=== PATIENT | male | born 1950 | race Caucasian/White ===

== ENCOUNTER 2016-10-21 22:31 | Inpatient (IN) | payer MEDICARE ==
[~2016-10-21] VITALS: Ht 185.4 cm; Wt 132.6 kg
--- NOTE | ~2016-10-21 | ER ---
PATIENT'S NAME: DINORAH BLANCO [facility] AGE: 65 Y [address] ROOM: [place] [address] [place] [facility] [place]: 10/21/[place] ER/Outpatient Report DISCHARGE DATE: FAMILY PHYSICIAN: PHYSICIAN, UNKNOWN ATTENDING PHYSICIAN: ANN WASSERMAN V TIME OF ARRIVAL: 2231 hours. TIME SEEN: 2231 hours. IDENTIFICATION: A 65-year-old male. CHIEF COMPLAINT: Fall with lumbar spine fracture. HISTORY OF PRESENT ILLNESS: The patient is a 65-year-old male who was transferred here from [facility]. The patient states that approximately 5 days ago he was outside weed eating when he sustained a fall and developed some back pain. He states he was evaluated in [facility] a couple of days ago and everything "checked out okay." Last night, he tripped and fell and again developed some worsening of his back pain. This happened at approximately 8 p.m. and around 2 a.m., his called the ambulance, but the patient refused transport at that time. Then, later this afternoon, he was seen at [facility], where they identified an L2 vertebral body fracture, nondisplaced, and a transverse process fracture on the right; so, he was referred here for care with a spine surgeon. The patient states he did not hit his head. No loss of consciousness. He denies pain anywhere else. ALLERGIES: PENICILLIN. CURRENT MEDICATIONS: 1. Hydralazine 25 mg t.i.d. 2. Simvastatin 80 mg daily. 3. Hyzaar 12.5/50 daily. 4. Hydroxychloroquine 200 mg daily. 5. Lidoderm patch daily. 6. Metformin 850 mg b.i.d. 7. Metoprolol succinate ER 50 mg daily. 8. Pioglitazone 15 mg daily. 9. Temazepam 15 mg daily. PATIENT'S NAME: DINORAH BLANCO [facility] AGE: 65 Y [address] ROOM: [place] [address] [place] [facility] [place]: 10/21/2016 ER/Outpatient Report DISCHARGE DATE: FAMILY PHYSICIAN: PHYSICIAN, UNKNOWN ATTENDING PHYSICIAN: ANN WASSERMAN V 10. Tramadol 50-100 mg q.6 h. p.r.n. 11. Effexor XR 225 mg daily. 12. Valium 10 mg t.i.d. p.r.n. 13. Amlodipine 10 mg daily. 14. Glyburide 5 mg daily. MEDICAL PROBLEMS: Depression, hypothyroidism, hypertension, hyperlipidemia, and diabetes mellitus, type 2. PRIOR SURGERY: Lumbar spine surgery x2 in [place], carpal tunnel syndrome, and rotator cuff. SOCIAL HISTORY: The patient is and lives in [place], [place]. 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 Tobacco use, denies. Alcohol use, drinks 3 times a week. Drug use, denies. FAMILY HISTORY: No pertinent family history identified. REVIEW OF SYSTEMS: All systems reviewed and negative other than what is noted in the HPI. PHYSICAL EXAMINATION: VITAL SIGNS: Weight 132.6 kg. Blood pressure 209/99, pulse 76, respirations 18, temp 98.7, and sats 94%. GENERAL: A 65-year-old male in mild distress. HEENT: Head: Normocephalic, atraumatic. Ears: TMs translucent both ears. Nose: Mucosa pink, no lesions. Mouth: No lesions. Pharynx, benign. NECK: Supple. No lymphadenopathy. No tenderness to palpation of his cervical spine. LUNGS: Clear to auscultation. HEART: Regular rate and rhythm. ABDOMEN: Protuberant, bowel sounds present, soft, slightly distended, nontender, no CVA tenderness. No tenderness of his thoracic spine. He does have pain in his lumbar spine area and more to the right. SKIN: [place], warm, and dry. No lesions or rashes noted. NEURO: The patient is alert, oriented x4. Cranial nerves 2 through 12 are grossly intact. Motor strength 5/5 throughout. Sensation is intact to light touch. Trace of lower extremity edema. EMERGENCY DEPARTMENT COURSE: All records were reviewed from [facility]. A rainbow and a clot were drawn from lab here. Labs drawn there include at 11 a.m., troponin I less than 0.03. Hemoglobin 13.1, hematocrit 38.8, platelets 162, white count PATIENT'S NAME: DINORAH BLANCO [facility] AGE: 65 Y [address] ROOM: [place] [address] [place] [facility] [place]: 10/21/2016 ER/Outpatient Report DISCHARGE DATE: FAMILY PHYSICIAN: PHYSICIAN, UNKNOWN ATTENDING PHYSICIAN: ANN WASSERMAN V 6.8. CRP 2.3. UA: Specific gravity 1.020, pH 7.5, otherwise negative. Sodium 138, potassium 3.3, chloride 99, CO2 29, BUN 15, creatinine 0.9, and blood sugar 89. Liver enzymes normal. CT scan, lumbar spine, nondisplaced fracture involving the anterior middle 3rd of L2 vertebral body. Fracture does not extend into the posterior 3rd of the vertebra or the pedicles. Nondisplaced fracture through the right transverse process of L2. Chronic degenerative lumbar spondylosis. It was noted later on addendum there was trace amounts of fluid and gas identified are likely related to the patient's fracture and degenerative disk disease and correlation with sed rate, white blood cell count would recommend to exclude early secondary infection. CT scan, thoracic spine, diffuse cervical and thoracic spondylosis, no acute findings. CT scan head, no acute findings. Chest x-ray, no acute process. Pelvis, mild degenerative changes. IMPRESSION: 1. Nondisplaced fracture of the L2 vertebral body. 2. Nondisplaced fracture through the right transverse process of L2. 3. Mild hypokalemia. 4. Frequent falls. 5. Hypertension. 6. Diabetes mellitus. PLAN: For admission, per Dr. Wasserman hospitalist and with Dr. Rice, consulting. Dr. Wasserman evaluated the patient in the emergency room and I did speak by telephone with Dr. Rice. FRANCINE GRAY MD CAR/modl /[id number] d: 10/22/16 0459 t: 10/22/16 0549, OUTPATIENT REPORT
--- NOTE | ~2016-10-21 | DS ---
PATIENT'S NAME: DINORAH BLANCO [facility] AGE: 65 Y [address] ROOM: [address] [address] LOCATION: [facility] ADMIT DATE: 10/21/2016 Discharge Summary DISCHARGE DATE: 10/24/2016 FAMILY PHYSICIAN: Vane Bey PA-C ATTENDING PHYSICIAN: Fabio Kendall V FINAL DIAGNOSES: 1. L2 vertebral body fracture. 2. Acute encephalopathy. 3. Elevated hypertension. 4. Diabetes mellitus, type 2, uncontrolled. 5. Obstructive sleep apnea. CONSULTANTS ON THE CASE: Dr. Rice. HOSPITAL COURSE: Please see details of admission in H and P by Dr. Kendall. Briefly, the patient was transferred from [facility] after being diagnosed with a vertebral fracture. The patient was started on narcotics with Percocet with consultation per Dr. Rice. Dr. Rice saw the patient the next day. He ordered a TLSO and stated that the patient remain in that for the next 2 months. He would follow up with the patient in [place] in 4 to 6 weeks. Later that day, the patient was found to have increased somnolence and encephalopathy. Difficult to arouse. We did hold his narcotics and antispasmodics. The patient received an ABG, which was really pretty unremarkable. We did start BiPAP on the patient and did give low-dose Narcan secondary to his encephalopathy. The patient was more alert later in the day. We did switch him over to CPAP. We changed his medications to prevent any further acute respiratory distress. The patient, the next day, was able to transfer from bed to chair with minimal assist. He was able to participate significantly with therapies, showing good strength and motorization. His blood pressure remained a complication during his stay. We did have some elevated pressures. We changed his hydralazine to 50 mg 3 times daily with holding parameters in place. The patient tolerated this well. We did remove the Guzmán catheter and arranged for home health on discharge. On the , it was felt that the patient could safely be discharged home with the assistance of home health. DIAGNOSTICS: Blood sugars ranged from 119 to 240. ABG showed a pH of 7.48, pCO2 of 34, PO2 of 93, HC03 of 25.3, CO2 content 26, base excess 2.0, percent saturation was 98% on room air. On the 4th, sodium was 141, potassium 3.4, chloride 106, bicarbonate 27, glucose 148, BUN 10, and creatinine 0.8. Magnesium was 1.4. White blood cell count 6.3, hemoglobin was 14, hematocrit 40.7, and platelets were 184. DISCHARGE INSTRUCTIONS: The patient is discharged home to resume home health. PATIENT'S NAME: DINORAH BLANCO [facility] AGE: 65 Y [address] ROOM: [address] [address] LOCATION: [facility] ADMIT DATE: 10/21/2016 Discharge Summary DISCHARGE DATE: 10/24/2016 FAMILY PHYSICIAN: Vane Bey PA-C ATTENDING PHYSICIAN: Fabio Kendall V DIET: Diabetic. ACTIVITY: No driving. FOLLOWUP: The patient will follow up with Vane Bey in 3 to 5 days. He will follow up with Dr. Rice in [place] in 4 to 6 weeks. Instruction is that the TLSO is to be on at all times and may remove for showering only. DISCHARGE MEDICATIONS: 1. Norvasc 10 mg daily. 2. Aspirin 81 mg daily. 3. Colace 100 mg 3 times daily. 4. Apresoline 50 mg 3 times daily. 5. MiraLAX 17 g twice daily. 6. Senna 2 tablets p.o. at bedtime. 7. Metoprolol 50 mg daily. 8. Simvastatin 80 mg daily. 9. Effexor 75 mg in the day and 150 mg daily for a total of 225 mg daily. 10. Dilaudid 2 mg every 2 hours as needed for pain. 11. Skelaxin 800 mg every 8 hours as needed. 12. Losartan/hydrochlorothiazide 50/12.5 one tablet daily. 13. Actos 15 mg daily. 14. Metformin 850 mg daily. We do appreciate participating in this patient's care, and thank you very much for the ability to serve him while hospitalized at [facility]. Time spent coordinating details of discharge was 37 minutes which were spent coordinating with consulting physicians and care management, completion of medication reconciliation, and education to the patient on the above-mentioned diagnoses. LEIGHTON GARCIA FOR GIRMA MOLINA MD NAVEED/modl /[id number] d: 10/25/16 1342 t: 10/28/16 1451, DISCHARGE SUMMARY
--- NOTE | ~2016-10-21 | HP ---
PATIENT'S NAME: DINORAH BLANCO [facility] AGE: 65 Y [address] ROOM: [place] [address] LOCATION: [facility] ADMIT DATE: 10/21/2016 History & Physical DISCHARGE DATE: FAMILY PHYSICIAN: PHYSICIAN, UNKNOWN ATTENDING PHYSICIAN: ANN WASSERMAN V DATE OF SERVICE: CHIEF COMPLAINT: Back pain and fall. HISTORY OF PRESENT ILLNESS: The patient is a 65-year-old male who was transferred to [facility] ER from [place]. The patient initially sustained a fall while weeding his garden several days ago. Apparently, he was in the hospital in [place] where he had an extensive workup, though I do not have the details of that yet. The patient was sent home and sustained another fall yesterday. At that point, he was evaluated by paramedics and elected not to be transferred to the hospital. Subsequently later in the night, the patient was somewhat altered and was complaining of back pain, and was eventually transferred to the ER in [place]. There, he had an imaging done and the imaging demonstrated nondisplaced fracture of the anterior and middle 3rd of the L2 vertebral body as well as a nondisplaced fracture through the right transverse process of L2. The patient was transferred to [facility] for further evaluation and management. The case was discussed with Dr. Rice by Dr. Leos. Dr. Rice recommended admission to Hospitalist Service for pain control as well as blood pressure control and the patient will be evaluated in the morning. The patient at this point only complains of severe back pain. He also reports that he has had episodes of "high and low sugar." Apparently, he is being taken off sulfonylurea right now and there was some question of dips in his blood glucose due to sulfonylurea. REVIEW OF SYSTEMS: All systems have been reviewed. All systems are negative aside from pertinent positives mentioned above. PAST MEDICAL HISTORY: As reported by the patient is, 1. Essential hypertension. 2. Vbh-hewnoqz-alichuhhb diabetes. 3. History of solid fusion at L4-L5/L5-S1 levels. PATIENT'S NAME: DINORAH BLANCO [facility] AGE: 65 Y [address] ROOM: [place] [address] LOCATION: [facility] ADMIT DATE: 10/21/2016 History & Physical DISCHARGE DATE: FAMILY PHYSICIAN: PHYSICIAN, UNKNOWN ATTENDING PHYSICIAN: ANN WASSERMAN V CURRENT MEDICATIONS: 1. Metformin. 2. Pioglitazone. 3. Sulfonylurea. A full list is being compiled. SOCIAL HISTORY: The patient admits to ongoing use of chewing tobacco. FAMILY HISTORY: Reviewed and is noncontributory due to known underlying etiology for the patient's presentation. PHYSICAL EXAMINATION: VITAL SIGNS: His blood pressure is 210/100, heart rates in the 80s, saturating 96% on room air, afebrile, and respirations 16. GENERAL: Appears as an obese, middle-aged male, in wioh-hk-ygpjnzit distress due to back pain. NEUROLOGIC: A complete neurological exam is nonfocal. He has preserved 5/5 sensation proximally and distally bilaterally in his lower extremities as well as preserved strength in the distribution. Upper extremities also demonstrate preserved strength and sensation. EYES: Pupils are equal and reactive to light. LYMPHATIC: No cervical lymphadenopathy. ENDOCRINE: No thyromegaly. LUNGS: Clear to auscultation. HEART: Regular rate and rhythm without appreciable murmurs, gallops, or rubs. GI: Abdomen is soft and nontender. : No costovertebral angle tenderness. VASCULAR: 2+ pedal pulses. MUSCULOSKELETAL: Does demonstrate tenderness to point palpation in the L2-L1 area overlying his lumbar spine. SKIN: Warm and dry. PSYCHIATRIC: Appropriate mood, cognition, and affect. DIAGNOSTIC DATA: Review of lab results from outside facility so far is remarkable for a slightly low potassium of 3.3. ASSESSMENT AND PLAN: This is a 65-year-old male who will be admitted with, 1. Lumbar vertebral fracture. We will start the patient on pain control. We will provide him with opioids, NSAIDs as his blood pressure allows, as well as muscle relaxants. He will be evaluated by Dr. Rice in the morning. PATIENT'S NAME: DINORAH BLANCO [facility] AGE: 65 Y [address] ROOM: [address] [address] LOCATION: [facility] ADMIT DATE: 10/21/2016 History & Physical DISCHARGE DATE: FAMILY PHYSICIAN: PHYSICIAN, UNKNOWN ATTENDING PHYSICIAN: ANN WASSERMAN V 2. Accelerated hypertension. We will restart the patient on all his medicines and provide him with additional agents as needed for blood pressure control. 3. Zry-djjvxbe-yfawnflxp diabetes. The patient will be continued on his home regimen minus sulfonylurea. We will trend his Accu-Cheks to see if he really is dipping. 4. Deep venous thrombosis prophylaxis will be instituted once the patient has undergone evaluation by Spine Surgery and no procedures are planned. Additional management will depend on clinical course. Time dedicated to this patient's encounter is 35 minutes. MD PERCY MEDINA/dixon /[id number] D: [id number] T: [id number] HISTORY & PHYSICAL
--- NOTE | ~2016-10-21 | CON ---
PATIENT'S NAME: DINORAH BLANCO [facility] AGE: 65 Y [address] ROOM: [place] [address] [place] [facility] [place]: 10/21/2016 Consultation DISCHARGE DATE: FAMILY PHYSICIAN: PHYSICIAN, UNKNOWN ATTENDING PHYSICIAN: ANN WASSERMAN V DATE OF CONSULTATION: 10/22/2016 REFERRING PHYSICIAN: Reynaldo Rice MD HISTORY OF PRESENT ILLNESS: The patient is a 65-year-old gentleman, who was transferred from [place] having sustained a fall and then identified L2 vertebral body fracture. In light of the ongoing issues, the patient was admitted. He has a past medical history of unstable diabetes as well as hypertension. He underwent a previous instrumented fusion at L4-L5 and L5-S1. The patient denied any syncopal episode. He states he tripped on some wood when he fell. He did have a couple of falls with respect to this. He presented eventually to the emergency room at [facility] with the ongoing low back pain. He denied any loss of bowel or bladder control. He denied any radicular symptoms. PAST MEDICAL HISTORY: Significant for type 2 diabetes, hypertension, morbid obesity, and lumbar spondylosis with previous instrumented fusion L4 to S1. SOCIAL HISTORY: The patient reports to be . He does chew tobacco. Denies any significant alcohol use. PHYSICAL EXAMINATION: VITAL SIGNS: On presentation, his vitals were stable this morning. He is utilizing the CPAP. NECK: Supple. No meningismus. CHEST: Shows good excursion. CARDIOVASCULAR: Pulses are full distally. No clubbing or cyanosis. He does have mild edema, dependent. ABDOMEN: Otherwise morbidly obese and without any masses or increased tenderness. MUSCULOSKELETAL: The lumbar spine is tender to deep palpation along the mid lumbar region. No step-off can be palpated. He is slightly large. The patient's lower extremities demonstrate good strength. Nerve tension signs are negative. He has normal reflexes. IMAGING DATA: PATIENT'S NAME: DINORAH BLANCO [facility] AGE: 65 Y [address] ROOM: [address] [address] [place] [facility] [place]: 10/21/2016 Consultation DISCHARGE DATE: FAMILY PHYSICIAN: PHYSICIAN, UNKNOWN ATTENDING PHYSICIAN: ANN WASSERMAN V Review of the patient's CT scans from [facility] did confirm a nondisplaced fracture through the right side of the body at L2. There are transverse process fractures nondisplaced at L2 on the right and L1 on the right. Diffuse bridging osteophyte formation is identified throughout the lumbar spine. No significant soft-tissue swelling can be seen. There is a component of spinal stenosis throughout the lumbar region as well secondary to facet arthropathy. The instrumented fusion from L4 to S1 appears to be solid. PLAN: At this point, the plan is to treat this conservatively with a TLSO. We will have him fitted for that, and he will need to wear that for a couple of months. He can be followed in the [facility] when I am there. He will be seen in 4 to 6 weeks depending on how he is doing. No additional surgical interventions should be indicated at this point for the lumbar spine. Certainly, mobilization is encouraged trying to minimize the risk of DVT formation. He must wear the brace 12/01 except when he is upright while taking a shower. MD ALFONSO GILBERT/modl /[id number] d: 10/22/16 0903 t: 11/06/16 1231, CONSULTATION REPORT
--- NOTE | 2016-10-22 01:41 | NUR ---
PO FLOOR AT 0020 FROM ER PER CART. AND DAUGHTER IN LAW WITH PT. PT SLEEPY HOWEVER DOES AWAKE EASILY. PT HAS PICKENS IN PLACE FROM [facility] UNKNOWN DATE OF PLACEMENT. ALSO HAS IV TO RIGHT FOREARM ALSO PLACED AT [facility] WHICH IS SL. BLOOD PRESSURE ELEVATED UPON ARRIVAL. PRN LOBETOLOL GIVEN. PT ALERT AND ORIENTED X3. IS A POOR HISTORIAN AT TIMES. UNABLE TO TELL WHICH MEDICATIONS HE IS ON. WILL CHECK WITH PHARMACY TOMORROW. PT RESTING WELL NOW AT THIS TIME WITH NO COMPLAINTS OF PAIN.
--- NOTE | 2016-10-22 04:37 | NUR ---
Significant Event:pt aaox3. sleepy upon arrival however does awaken easily. pt has pain to lower back. blood pressure elevated upon arrival. prn labetolol given, blood pressure down to 185/54. pt has hx of sleep apnea however does not wear c-pap at home. pt o2 sats dropped to 60's improved with awakening pt. order for c-pap given and has had on since 329 with no complications noted. has been sleeping soundly with no complains of pain. is noted to have some bruising to right back, as well as a rash from a patch to right back. abrasions to right hand along with some brusing noted to bilateral arms. pt states understanding of call light use. Follow up:
[2016-10-22 11:18] LABS: BICARBONATE 25.3 mmol/L (18.0-23.0); PCO2 34 mmHg (35-45); PO2 93 mmHg (80-90)
[2016-10-22] MEDS ORDERED: ULTRAM50 MG PO (11:54)
[2016-10-22] MEDS ORDERED: VALIUM10 MG PO (11:55)
[2016-10-22] MEDS ORDERED: EFFEXOR XR150 MG PO (11:57)
[2016-10-22] MEDS ORDERED: EFFEXOR XR75 MG PO (11:57)
[2016-10-22] MEDS ORDERED: ZOCOR80 MG PO (11:58)
[2016-10-22] MEDS ORDERED: APRESOLINE50 MG PO (11:58)
[2016-10-22] MEDS ORDERED: NORVASC10 MG PO (11:59)
[2016-10-22] MEDS ORDERED: LOSARTAN-HCTZ1 EAC2 PO (11:59)
[2016-10-22] MEDS ORDERED: TOPROL XL 5050 MG PO (11:59)
[2016-10-22] MEDS ORDERED: ACTOS 15 MG15 MG PO (12:00)
[2016-10-22] MEDS ORDERED: GLUCOPHAGE850 MG PO (12:01)
[2016-10-22] MEDS ORDERED: ASPIRIN LO-DOSE81 MG PO (12:01)
--- NOTE | 2016-10-22 13:38 | NUR ---
PT SCREENED D/T MST. REPORTS 2-13# WT LOSS. NOT SIGNIFICANT. WILL ASSIST NEEDED.
--- NOTE | 2016-10-22 14:40 | NUR ---
Significant Event: Patient very drowsy this a.m. Able to state name and date of , but unable to open eyes and take either the cup of meds or the water jug when asked. Patient on CPAP and switched to Bipap and narcan 0.2 mg given IV at 1148. Patient was going to go to PCU but then was able to come around and get off of bipap and maintain oxygen on room air with sats >90%. Ate about half of his lunch. Dilaudid finally given for pain at 1419--results pending. Blood pressure at 1415 elevated at 180/88 and heart rate of 66. Norvasc and hydralazine both given orally and nurse will recheck patient blood pressure and pulse shortly. Follow up: Continue to monitor.
--- NOTE | 2016-10-22 15:15 | NUR ---
Met with patient, , and bhyyagjx-pj-jvq today. Introduced myself and the role of the CM department. Patient is on BiPap at this time. May need to transfer to PCU if patient is not able to be weaned off the BiPap. has brain cancer and patient was her primary caregiver at home. At this time, LEIGHTON Hinton is thinking that patient will need a short stay in a swingbed or detention facility before going home. I briefly discussed this with and dtr-in-law and they are aware of this. It is to soon to know at this time what his needs will be. Will continue to follow and offer supports.
--- NOTE | 2016-10-23 05:42 | NUR ---
POP IS ALERT AND ORIENTATED THIS SHIFT SEE NOTE FROM PREVIOUS SHIFT. BEDREST PICKENS DRAINING YELLOW URINE 1400 OUT THIS SHIFT. BIPAP THIS HS. IV TO R AC SL. ACHS WITH NO SLIDING SCALE. BLOOD SUGAR WAS [address] KING NOTIFIED HE SAID TO CONTINUE MONITORING. BLOOD PRESSURE WAS 200/92, 186/83,184/84, 175/85 HYDRALAZINE WAS GIVE 0.5 ML IV PUSH AND 50MG PO SEE NOW ORDER. DILAUDID GIVE X3 LAST DOSE AT 0600. PATIENT IS ON BED REST UNTIL HE HIS TLSO BRACE ARRIVES TODAY HAS A L-2 FX. NO BM THIS SHIFT.
[2016-10-23 05:45] LABS: BASOPHIL % 0.5 %; EOSINOPHIL # 0.2 K/uL (0.0-0.5); EOSINOPHIL % 2.5 %; HEMATOCRIT 40.7 % (37.0-53.0); IMMATURE GRANULOCYTE % 0.5 %; LYMPHOCYTE # 1.5 K/uL (0.8-4.0); LYMPHOCYTE % 22.9 %; MCH 34.1 pg (27.0-34.0); MCHC 34.4 gm/dL (32.0-36.5); MCV 99.3 fl (83.0-98.0); MONOCYTE # 0.8 K/uL (0.0-1.0); MPV 9.8 fl (9.4-12.4); NEUTROPHIL # (ANC) 3.8 K/uL (1.4-9.0); NEUTROPHIL % 60.6 %; NRBC % 0 /100WBC (0-0.00); PLATELET COUNT 184 K/uL (150-450); RDW-CV 12.6 % (11.9-14.6); WBC 6.3 K/uL (4.0-11.0)
[2016-10-23 05:59] LABS: ALBUMIN 3.3 gm/dL (3.5-5.0); ANION GAP 11.4 (10.0-19.0); BLOOD UREA NITROGEN 10 mg/dL (6-24); CALCIUM 8.5 mg/dL (8.5-10.5); CHLORIDE 106 mMol/L (96-110); CO2 27 mMol/L (22-32); CREATININE 0.8 mg/dL (0.6-1.3); ESTIMATED GFR (MDRD EQUATION) > 60; MAGNESIUM 1.4 mg/dL (1.8-2.6); PHOSPHORUS 2.9 mg/dL (2.5-4.9); POTASSIUM 3.4 mMol/L (3.7-5.1); SODIUM 141 mMol/L (135-145)
--- NOTE | 2016-10-23 15:30 | NUR ---
RECEIVED REFERRAL THAT PATIENT'S DAUGHTER IN LAW WOULD LKIE FOR DINORAH TO GO TO SNF IN [place]. I MEET WITH DINORAH AND HIS SPOUSE AT THE BEDSIDE. INTRODUCED CM AND OUR ROLE. PATIENT LIVES IN OWN HOME WITH HIS SPOUSE SHE HAS CA AND GETS HHC 3 TIMES A WEEK. THEY REPORT THAT THEY HAVE NEIGHBORS THAT HELP HIM OFTEN.DINORAH TELLS ME THAT HE WILL BE GOING HOME ONCE HE IS READY FOR DISCHARGE AND HE WOULD LIKE HHC. I PRESENTED TO HIM THE OPTION OF GOING TO A SNF AND THEY ARE NOT OPENED TO THIS. PATIENT TELLS ME THAT DOES NOT NEED TO GO TO A SNF I PRESENTED THE OPTION OF GOING FOR SHORT STAY BUT HE IS NOT OPENED TO IT AT ALL. DR. MOLINA UPDATED ON PATIENT'S DISCHARGE PLANS AND GOALS.
--- NOTE | 2016-10-23 16:16 | NUR ---
Significant Event:PT ON BEDREST THIS MORNING UNTIL BACK BRACE FITTED AT 1000. UP TO CHAIR AND AMBULATED IN H[place]WAY 300FT. C/O BACK PAIN AND DILAUDID PO GIVEN LAST LOGAN AT 1430. PICKENS DRAINING DARK OFELIA URINE 350MLS. RAC IV. S/L'D. AC AND HS ACCUCHECKS WITH NO SLIDING SCALE. FX L-2 VERTEBRAE. C-PAP AT NIGHT. PLAN TO POSSIBLE GO HOME TOMORROW. BLOOD PRESSURES TODAY 169/80, 150/71. A/O AND FAMILY HERE. Follow up:
--- NOTE | 2016-10-24 05:05 | NUR ---
Significant Event: ALERT AND ORIENTATED. AMBULATES WITH GB AND ONE ASSIST MUST WEAR BRACE WHEN AMBULATING MAY TAKE OFF IN BED. PICKENS OUT, VOIDED X2 750 OUT NO BM. HIS BLOOD PRESSURE WNL TODAY. GAVE DILAUDID AT 0116 AND METAXALONE AT 0204. PATIENT STATES BRACE REDUCES THE PAIN. 2 L OF O2 AT HS. WAS INOCONTINENT X1 OF URINE. IN ROOM WITH HIM. PLAN IS TO GO HOME TODAY. Follow up: CONTINUE TO MONITOR VS AND OUTPUT.
[2016-10-24] MEDS ORDERED: COLACE100 MG PO (11:59)
[2016-10-24] MEDS ORDERED: MIRALAX17 GM PO (12:00)
[2016-10-24] MEDS ORDERED: SENNA LAXATIVE1 EACH PO (12:01)
[2016-10-24] MEDS ORDERED: DILAUDID 2MG(HYD2 MG PO (12:03)
[2016-10-24] MEDS ORDERED: SKELAXIN800 MG PO (12:05)
--- NOTE | 2016-10-24 15:29 | NUR ---
Met with patient, and LEIGHTON An this morning. Patient will be discharging to home today and will resume home health care through [facility]. I faxed patient's discharge orders to Bet[facility] at [place] along with his therapy notes, med list, and radiology reports. Faxed to [phone]. I informed patient and that I made contact with Betina and the information was forwarded to her via fax. Face to face was not needed since patient was resuming Home Health care. No other needs.
--- NOTE | 2016-10-24 17:45 | NUR ---
DISCHARGE: Pt. and were educated on TLSO brace d/c instructions, taking own b/p, meals for diabetes, senna, miralax, colace, dilaudid, and skelaxin. Reviewed discharge instructions and prescriptions. Verbalized understanding, no questions or concerns. Left with all belongings and precriptions. Taken to front door by aide and driven home by .
== END 2016-10-24 13:40 | disposition home health service (06) | DRG 551 ==
LOC: GACC 22:31 → GMSU 23:30
PROVIDERS: Physician Assistant; ADMIT Internal Medicine
DX: S32.029A Unspecified fracture of second lumbar vertebra, initial encounter for closed fracture (principal); G93.41 Metabolic encephalopathy; E11.9 Type 2 diabetes mellitus without complications; G47.33 Obstructive sleep apnea (adult) (pediatric); I10 Essential (primary) hypertension; Z91.81 History of falling; W18.30XA Fall on same level, unspecified, initial encounter; Z98.1 Arthrodesis status; E03.9 Hypothyroidism, unspecified; F32.9 Major depressive disorder, single episode, unspecified; E78.5 Hyperlipidemia, unspecified; E87.6 Hypokalemia
CPT/HCPCS: A9270; J0360; J1650; J2310; J3010; J3360